=== PATIENT | female | born 1945 | race Caucasian/White ===

== ENCOUNTER → 2017-03-23 | Outpatient (CLI) | payer OTHER, MEDICARE ==
--- NOTE | 2017-03-23 14:16 | RADIOLOGY REPORT (SQ) ---
EXAM DESCRIPTION: MRI LUMBAR SPINE WITHOUT COMPLETED DATE/TIME: 03/23/2017 1:44 pm REASON FOR STUDY: M48.56XA COLLAPSED VERTEBRA, NEC, LUMBAR REGION, INIT M48.56XA COLLAPSED VERTEBRA , NEC, LUMBAR REGION, INIT COMPARISON: No recent comparisons. TECHNIQUE: Sagittal and Axial imaging includes T1, T2, STIR and gradient echo sequences. Coronal T2/ HASTE imaging. LIMITATIONS: None. FINDINGS: VISUALIZED UPPER ABDOMEN: Limited evaluation. No acute or suspicious findings suggested. SEGMENTATION: No transitional anatomy. The lowest well-developed disc space is labeled L5-S1. ALIGNMENT: Mild grade 1 listhesis at L4-5. VERTEBRAE: Multilevel compression fractures. At L3-4, upper endplate depression with associated stef a, mild height loss without retropulsion. This suggests recent upper endplate fracture. At L5-S1, c onsiderable wedging with greater than 50% height loss maximally. Associated inferior endplate fractu re line and edema. No significant retropulsion. L2 and L4 upper endplate depressions are not associ ated with edema and presumably chronic. L1 is maintained. BONE MARROW: As above. Marrow signal otherwise normal. DISC SIGNAL: Diminished signal throughout. Individual disc levels are detailed below. POSTERIOR ELEMENTS: No pars defect. No exuberant facet overgrowth. HARDWARE: None in the spine. CORD AND CONUS: Normal in size and signal intensity. Conus at the appropriate level. SOFT TISSUES: No aortic aneurysm seen. No bulky retroperitoneal adenopathy or mass. No paraspinal mas s or fluid. L1-L2: Minimal disc bulge. No stenosis. L2-L3: No significant spinal stenosis or exit foraminal stenosis. L3-L4: Mild foraminal narrowing. L4-L5: Slight degenerative malalignment as above. Associated broad disc bulge. There is mild right lateral recess narrowing and overall noncritical central canal encroachment. Up to moderate right fo raminal stenosis. L5-S1: Mild broad posterior protrusion contacts the right S1 nerve root without displacement. No hig h-grade central stenosis. Relatively patent neural foramina with mild narrowing on the right. LOWER THORACIC: Incompletely imaged. No stenosis seen. SACRUM: Visualized upper sacrum intact. OTHER: No other significant findings. IMPRESSION: 1. Recent appearing compression fractures without retropulsion at the L3 and L5 levels. 2. Chronic L2 and L4 vertebral compression fractures. 3. Mild degenerative listhesis at L4-5 with noncritical central spinal stenosis. Other degenerative changes as above. TECHNICAL DOCUMENTATION: JOB ID: [id number] [employer]- All Rights Reserved
== END ==
LOC: RAD 15:40
PROVIDERS: ATTEND Family Medicine
DX: M48.56XA Collapsed vertebra, not elsewhere classified, lumbar region, initial encounter for fracture (principal)
CPT/HCPCS: 72148

== ENCOUNTER → 2018-10-14 | Outpatient (CLI) | payer OTHER, MEDICARE ==
--- NOTE | 2018-10-14 15:54 | RADIOLOGY REPORT (SQ) ---
EXAM DESCRIPTION: CT HEAD WITHOUT COMPLETED DATE/TIME: 10/14/2018 3:43 pm REASON FOR STUDY: R40.20 UNSPECIFIED COMA R41.3 OTHER AMNESIA R40.20 UNSPECIFIED COMA R41.3 OTHER AMNESIA COMPARISON: 05/16/2014. TECHNIQUE: Axial images acquired through the brain without intravenous contrast. Images reviewed wi th bone, brain and subdural windows. Additional sagittal and coronal reconstructions were generated. Images stored on PACS. All CT scanners at this facility use dose modulation, iterative reconstruction, and/or weight based d osing when appropriate to reduce radiation dose to as low as reasonably achievable (ALARA). [facility]: Dose Right [facility]: CareDose [facility]: Dose Right [facility]: Teradose 4D [facility]: MyDocTime RADIATION DOSE: CT Rad equipment meets quality standard of care and radiation dose reduction techniq ues were employed. CTDIvol: 48.6 mGy. DLP: 905 mGy-cm. mGy. LIMITATIONS: None. FINDINGS: VENTRICLES: Normal size and contour. CEREBRUM: No masses. No hemorrhage. No midline shift. No evidence for acute infarction. Normal gra y/white matter differentiation. No areas of low density in the white matter. CEREBELLUM: No masses. No hemorrhage. No alteration of density. No evidence for acute infarction. EXTRAAXIAL SPACES: No fluid collections. No masses. ORBITS AND GLOBE: No intra- or extraconal masses. Normal contour of globe without masses. CALVARIUM: No fracture. PARANASAL SINUSES: No fluid or mucosal thickening. SOFT TISSUES: No mass or hematoma. OTHER: No other significant finding. IMPRESSION: NORMAL BRAIN CT WITHOUT CONTRAST. EVIDENCE OF ACUTE STROKE: NO. COMMENT: Quality ID # [id number]: Final reports with documentation of one or more dose reduction techniques (e.g., Automated exposure control, adjustment of the mA and/or kV according to patient size, use of iterative reconstruction technique) TECHNICAL DOCUMENTATION: JOB ID: [id number] [employer]- All Rights Reserved Reading location - IP/workstation name: [email or web address]
== END ==
LOC: RAD 12:44
PROVIDERS: ATTEND Family Medicine
DX: R41.3 Other amnesia (principal); R40.20 Unspecified coma
CPT/HCPCS: 70450

== ENCOUNTER 2019-12-01 14:00 | Emergency (ER) | payer MEDICARE, OTHER ==
--- NOTE | 2019-12-01 14:26 | ER Document Report ---
ED Medical Screen (RME) - General Chief Complaint: Asthma Exacerbation Stated Complaint: COUGH,SHORT OF BREATH Time Seen by Provider: 12/01/19 14:20 Primary Care Provider: SHREYA BURCH MD [Primary Care Provider] - Follow up as needed Mode of Arrival: Wheelchair Information source: Patient Notes: Patient presents complaining of chronic cough for the past year and a half that worsened over the past month. Patient was seen earlier today by her primary doctor and had outpatient COVID testing, basic labs and chest x-ray. Patient had multifocal pneumonia on her x-ray and was advised to come in. Patient reports intolerance of many antibiotics and steroids. Patient has a history of asthma, anxiety, COPD and Gaston's disease. I have greeted and performed a rapid initial assessment of this patient. A comprehensive ED assessment and evaluation of the patient, analysis of test results and completion of the medical decision making process will be conducted by additional ED providers. TRAVEL OUTSIDE OF THE [place] IN LAST 30 DAYS: No - Related Data Allergies/Adverse Reactions: cyclosporine [From Restasis] Allergy (Severe, Verified 07/25/13 17:47) RASH grape [Grape] Allergy (Severe, Verified 07/25/13 17:47) BREATHING DIFFICULTY Iodinated Contrast Media [IV Dye, Iodine Containing] Allergy (Severe, Verified 07/25/13 17:47) Hives nitrofurantoin macrocrystalline [From Macrobid] Allergy (Severe, Verified 07/25/13 17:47) N AND V Penicillins Allergy (Severe, Verified 07/25/13 17:47) Hives pineapple [Pineapple] Allergy (Severe, Verified 07/25/13 17:47) Swelling of Throat Shellfish * [Shellfish] Allergy (Severe, Verified 07/25/13 17:47) Swelling of Throat Sulfa (Sulfonamide Antibiotics) Allergy (Severe, Verified 07/25/13 17:47) RASH trimethoprim [From Bactrim] Allergy (Severe, Verified 07/25/13 17:47) N AND V ibuprofen Adverse Reaction (Verified 07/25/13 17:47) steroids Allergy (Severe, Uncoded 07/25/13 17:47) Seizures Past Medical History - Past Medical History Cardiac Medical History: Reports: Hx Congestive Heart Failure - summer, Hx Hypertension Denies: Hx Atrial Fibrillation, Hx Coronary Artery Disease, Hx Heart Attack, Hx Hypercholesterolemia, Hx Peripheral Vascular Disease, Hx Pulmonary Embolism, Hx Heart Murmur Pulmonary Medical History: Reports: Hx Asthma - No meds (seldom has any problems now), Hx Bronchitis - Last time approx 2 yrs ago, Hx Pneumonia - x2 (20 yrs ago) Denies: Hx COPD, Hx Respiratory Failure, Hx Sleep Apnea, Hx Tuberculosis Neurological Medical History: Reports: Hx Seizures - with steroid use . Denies: Hx Cerebrovascular Accident - Denies, but stuttered for 12 yrs, normal speech last 5 yrs unless tired., Hx Parkinson's Disease Endocrine Medical History: Reports: Hx Hypothyroidism - meds x 30 years. Denies: Hx Graves' Disease, Hx Hyperthyroidism Renal/ Medical History: Reports: Hx Kidney Stones - "long time ago" no surgical intervention, Hx Ovarian Cysts. Denies: Hx End Stage Renal Disease, Hx Peritoneal Dialysis, Hx Pelvic Inflammatory Disease Malignancy Medical History: Denies: Hx Breast Cancer, Hx Cervical Cancer, Hx Lung Cancer, Hx Ovarian Cancer GI Medical History: Reports: Hx Gastroesophageal Reflux Disease, Hx Ulcer. Denies: Hx Crohn's Disease, Hx Hiatal Hernia, Hx Irritable Bowel, Hx Liver Failure, Hx Pancreatitis Musculoskeltal Medical History: Reports Hx Arthritis, Reports Hx Fibromyalgia - Dx'ed 2005, Denies Hx Multiple Sclerosis, Denies Hx Muscular Dystrophy, Denies Hx Systemic Lupus Erythematosus Psychiatric Medical History: Reports: Hx Depression Denies: Hx Bipolar Disorder, Hx Dementia, Hx Post Traumatic Stress Disorder, Hx Schizophrenia Traumatic Medical History: Reports: Hx Fractures - LEFT hand, no surgical intervention Past Surgical History: Reports: Hx Cholecystectomy - laparoscopic approx 7 years ago, Hx Orthopedic Surgery - right hip, Hx Tonsillectomy. Denies: Hx Appendectomy, Hx Bowel Surgery, Hx Section, Hx Colostomy, Hx Coronary Artery Bypass Graft, Hx Gastric Bypass Surgery, Hx Herniorrhaphy, Hx Hysterectomy, Hx Mastectomy, Hx Pacemaker, Hx Tubal Ligation - Immunizations Hx Diphtheria, Pertussis, Tetanus Vaccination: Yes Physical Exam - Vital signs Vitals: Temp Pulse Resp BP Pulse Ox 98.2 F 89 16 125/71 100 12/01/19 14:16 12/01/19 14:16 12/01/19 14:16 12/01/19 14:16 12/01/19 14:16 - Respiratory Respiratory status: No respiratory distress. No: Tachypnea Breath sounds: Nonproductive cough, Rales - Bilateral lower lobes Course - Vital Signs Vital signs: Temp Pulse Resp BP Pulse Ox 98.2 F 89 16 125/71 100 12/01/19 14:16 12/01/19 14:16 12/01/19 14:16 12/01/19 14:16 12/01/19 14:16 Doctor's Discharge - Discharge Referrals: SHREYA BURCH MD [Primary Care Provider] - Follow up as needed
[2019-12-01 18:23] LABS: A TYPE INFLUENZA AG NEGATIVE (NEGATIVE); B INFLUENZA AG NEGATIVE (NEGATIVE)
[2019-12-01 19:00] LABS: ALBUMIN 4.3 g/dL (3.5-5.0); BILIRUBIN,DIRECT 0.3 mg/dL (0.0-0.4); BILIRUBIN,TOTAL 0.5 mg/dL (0.2-1.3); NEONATAL BILIRUBIN RESULT 0.2 mg/dL (0.1-1.1); TOTAL PROTEIN 7.6 g/dL (6.3-8.2)
--- NOTE | 2019-12-01 19:17 | ER Document Report ---
ED General - General Chief Complaint: Asthma Exacerbation Stated Complaint: COUGH,SHORT OF BREATH Time Seen by Provider: 12/01/19 14:20 Primary Care Provider: SHREYA BURCH MD [Primary Care Provider] - Follow up as needed Mode of Arrival: Wheelchair Information source: Patient Notes: Patient is a 74-year-old female presenting to the emergency department chief complaint of shortness of breath and asthma exacerbation. Patient states that she was seen by her primary care physician and subsequently by a labourers and then informed to come to the emergency department for further evaluation and possible management. At time of presentation patient states that she is very short of breath but is carrying on a full conversation maintaining a 95% oxygen saturation and appears anxious but not in any acute distress. Patient states is been ongoing for some time but worse the past couple of days. Patient denies nausea vomiting diarrhea. Patient does report a cough but no fever or chills. TRAVEL OUTSIDE OF THE [place] IN LAST 30 DAYS: No - HPI Onset: Last week Onset/Duration: Persistent, Worse Quality of pain: No pain Severity: None Pain Level: Denies Associated symptoms: Nonproductive cough, Productive cough, Shortness of breath Exacerbated by: Movement, Walking, Coughing, Deep breathing Relieved by: Denies Similar symptoms previously: Yes Recently seen / treated by doctor: Yes - Related Data Allergies/Adverse Reactions: cyclosporine [From Restasis] Allergy (Severe, Verified 12/01/19 19:15) RASH grape [Grape] Allergy (Severe, Verified 12/01/19 19:15) BREATHING DIFFICULTY Iodinated Contrast Media [IV Dye, Iodine Containing] Allergy (Severe, Verified 12/01/19 19:15) Hives nitrofurantoin macrocrystalline [From Macrobid] Allergy (Severe, Verified 12/01/19 19:15) N AND V Penicillins Allergy (Severe, Verified 12/01/19 19:15) Hives pineapple [Pineapple] Allergy (Severe, Verified 12/01/19 19:15) Swelling of Throat Shellfish * [Shellfish] Allergy (Severe, Verified 12/01/19 19:15) Swelling of Throat Sulfa (Sulfonamide Antibiotics) Allergy (Severe, Verified 12/01/19 19:15) RASH trimethoprim [From Bactrim] Allergy (Severe, Verified 12/01/19 19:15) N AND V ibuprofen Adverse Reaction (Verified 12/01/19 19:15) steroids Allergy (Severe, Uncoded 12/01/19 19:15) Seizures Past Medical History - General Information source: Patient - Social History Smoking Status: Never Smoker Chew tobacco use (# tins/day): No Frequency of alcohol use: None Drug Abuse: None Lives with: Spouse/Significant other Family History: Reviewed & Not Pertinent Patient has suicidal ideation: No Patient has homicidal ideation: No - Past Medical History Cardiac Medical History: Reports: Hx Congestive Heart Failure - summer, Hx Hypertension Denies: Hx Atrial Fibrillation, Hx Coronary Artery Disease, Hx Heart Attack, Hx Hypercholesterolemia, Hx Peripheral Vascular Disease, Hx Pulmonary Embolism, Hx Heart Murmur Pulmonary Medical History: Reports: Hx Asthma - No meds (seldom has any problems now), Hx Bronchitis - Last time approx 2 yrs ago, Hx Pneumonia - x2 (20 yrs ago) Denies: Hx COPD, Hx Respiratory Failure, Hx Sleep Apnea, Hx Tuberculosis Neurological Medical History: Reports: Hx Seizures - with steroid use . Denies: Hx Cerebrovascular Accident - Denies, but stuttered for 12 yrs, normal speech last 5 yrs unless tired., Hx Parkinson's Disease Endocrine Medical History: Reports: Hx Hypothyroidism - meds x 30 years. Denies: Hx Graves' Disease, Hx Hyperthyroidism Renal/ Medical History: Reports: Hx Kidney Stones - "long time ago" no surgical intervention, Hx Ovarian Cysts. Denies: Hx End Stage Renal Disease, Hx Peritoneal Dialysis, Hx Pelvic Inflammatory Disease Malignancy Medical History: Denies: Hx Breast Cancer, Hx Cervical Cancer, Hx Lung Cancer, Hx Ovarian Cancer GI Medical History: Reports: Hx Gastroesophageal Reflux Disease, Hx Ulcer. Denies: Hx Crohn's Disease, Hx Hiatal Hernia, Hx Irritable Bowel, Hx Liver Failure, Hx Pancreatitis Musculoskeletal Medical History: Reports Hx Arthritis, Reports Hx Fibromyalgia - Dx'ed 2005, Denies Hx Multiple Sclerosis, Denies Hx Muscular Dystrophy, Denies Hx Systemic Lupus Erythematosus Psychiatric Medical History: Reports: Hx Depression Denies: Hx Bipolar Disorder, Hx Dementia, Hx Post Traumatic Stress Disorder, Hx Schizophrenia Traumatic Medical History: Reports: Hx Fractures - LEFT hand, no surgical intervention Past Surgical History: Reports: Hx Cholecystectomy - laparoscopic approx 7 years ago, Hx Orthopedic Surgery - right hip, Hx Tonsillectomy. Denies: Hx Appendectomy, Hx Bowel Surgery, Hx Section, Hx Colostomy, Hx Coronary Artery Bypass Graft, Hx Gastric Bypass Surgery, Hx Herniorrhaphy, Hx Hysterectomy, Hx Mastectomy, Hx Pacemaker, Hx Tubal Ligation - Immunizations Hx Diphtheria, Pertussis, Tetanus Vaccination: Yes Review of Systems - Review of Systems Notes: REVIEW OF SYSTEMS: CONSTITUTIONAL : Denies fever, chills, or sweats. Denies recent illness. EENT: Denies eye, ear, throat, or mouth pain or symptoms. Denies nasal or sinus congestion. CARDIOVASCULAR: Denies chest pain. RESPIRATORY: Per HPI GASTROINTESTINAL: Denies abdominal pain. Denies nausea, vomiting, or diarrhea. Denies constipation. GENITOURINARY: Denies difficulty urinating, painful urination, burning, frequency, or blood in urine. MUSCULOSKELETAL: Denies neck or back pain or joint pain or swelling. SKIN: Denies rash or skin lesions. HEMATOLOGIC : Denies easy bruising or bleeding. NEUROLOGICAL: Denies altered mental status or loss of consciousness. Denies headache. Denies weakness or paralysis or loss of use of either side. Denies problems with gait or speech. Denies sensory or motor loss. PSYCHIATRIC: Denies suicidal or homicidal ideations 10 Systems are negative unless otherwise specified above Physical Exam - Vital signs Vitals: Temp Pulse Resp BP Pulse Ox 98.2 F 89 16 125/71 100 12/01/19 14:16 12/01/19 14:16 12/01/19 14:16 12/01/19 14:16 12/01/19 14:16 - Notes Notes: PHYSICAL EXAMINATION: GENERAL: Well-appearing, well-nourished and in no acute distress. HEAD: Atraumatic, normocephalic. EYES: Pupils equal round and reactive to light, extraocular movements intact, sclera anicteric, conjunctiva are normal. ENT: nares patent, oropharynx clear without exudates. Moist mucous membranes. NECK: Normal range of motion, supple without lymphadenopathy, no appreciable JVD LUNGS: Lungs demonstrate crackles to the bases but deep inspiration does elicit a cough response. HEART: Regular rate and rhythm without murmurs ABDOMEN: Soft, nontender, normal bowel sounds. No guarding, no rebound. No masses appreciated. EXTREMITIES: Active full range of motion, no pitting or edema. No cyanosis. 2+ pulses x4 NEUROLOGICAL: No focal neurological deficits. Moves all extremities spontaneously and on command. Patient does appear quite anxious. SKIN: Warm, Dry, and intact. Normal turgor, no rashes or lesions noted. Course - Re-evaluation Re-evalutation: 12/01/19 21:16 Patient has been maintained on a residence hall director the entire time in the emergency department after reviewing EKG labs and chest x-ray I discussed with the patient and eventually agreed on an albuterol breathing treatment and guaifenesin. After this was given the patient states that she felt markedly improved. She is still requesting at home oxygen but at this time I do not see a need to initiated at this time and recommend that she speak with her primary care provider in regards to a possible at home oxygen generator. There is no signs of heart attack or obvious pneumonia. Patient has been tested for coronavirus which is pending influenza was obtained and determined to be negative. Patient will be discharged home and follow-up with her primary care provider. - Vital Signs Vital signs: Temp Pulse Resp BP Pulse Ox 98.0 F 84 20 119/71 95 12/01/19 20:56 12/01/19 19:42 12/01/19 20:55 12/01/19 20:56 12/01/19 20:55 Discharge - Discharge Clinical Impression: Anxiety, Shortness of breath Asthma exacerbation Qualifiers: Asthma severity: moderate Asthma persistence: unspecified Qualified Code(s): J45.901 - Unspecified asthma with (acute) exacerbation Condition: Stable Disposition: HOME, SELF-CARE Instructions: Asthma ([facility]), Inhaled Bronchodilators ([facility]) Additional Instructions: Recommend following up with your primary care physician on Wednesday to discuss whether or not they feel the need to start you on supplemental oxygen at home. Please take medications as prescribed. Prescriptions: Guaifenesin [Adult Tussin Chest Congestion] 100 mg PO Q4 #120 liquid Referrals: SHREYA BURCH MD [Primary Care Provider] - Follow up as needed
[2019-12-01] MEDS ORDERED: GUAIFENESIN SYRP 200 MG/10 ML UDC PO ONE (19:27)
[2019-12-01] MEDS ORDERED: ALBUTEROL SULFATE 0.083% NEB 2.5 MG/3 ML AMPUL NEB ONE (19:27)
[2019-12-01 21:06] VITALS: BP 119/71
--- NOTE | 2019-12-01 23:52 | RADIOLOGY REPORT (SQ) ---
EXAM DESCRIPTION: XR CHEST 1 VIEW COMPLETED DATE/TME: 12/01/2019 19:27 CLINICAL HISTORY: 74 years, Female, worsening sob EXAM DESCRIPTION: CLINICAL HISTORY: worsening sob COMPARISON: 05/16/2014 FINDINGS: Single view of the chest is submitted. There is bilateral pulmonary edema and mild cardiomegaly. Edema has worsened since the prior exam but the lung volumes are smaller which exaggerates this appearance. There is mild consolidation at the lateral left lung. No other definite focal consolidation. IMPRESSION: Worsened pulmonary edema. Mild consolidation at the left lateral lung.
== END 2019-12-01 21:32 | disposition home or self-care (01) ==
LOC: ER 14:00
DX: J45.901 Unspecified asthma with (acute) exacerbation (principal); F41.9 Anxiety disorder, unspecified
CPT/HCPCS: 94640; 99284; 36415; 87040; 85025; 80076; 80048; 87804; 71046; 71045; 99201; U0003; A9270 ×2; G0463; C9803; 87635; 99211; J7613

== ENCOUNTER → 2019-12-01 | Outpatient (CLI) | payer MEDICARE, OTHER ==
[2019-12-01 10:30] LABS: ABSOLUTE BASOPHILS # (AUTO) 0.1 10^3/uL (0.0-0.2); ABSOLUTE EOSINOPHILS # (AUTO) 0.5 10^3/uL (0.0-0.6); ABSOLUTE LYMPHOCYTES (AUTO) 2.5 10^3/uL (0.5-4.7); ABSOLUTE MONOCYTES (AUTO) 1.1 10^3/uL (0.1-1.4); BASOPHILS % (AUTO) 0.9 % (0-2); EOSINOPHILS % (AUTO) 3.9 % (0-6); HEMATOCRIT 41.7 % (36.0-47.0); LYMPHOCYTES % (AUTO) 20.6 % (13-45); MEAN CORPUSCULAR HEMOGLOBIN 30.4 pg (27.0-33.4); MEAN CORPUSCULAR HGB CONC 33.4 g/dL (32.0-36.0); MEAN CORPUSCULAR VOLUME 91 fl (80-97); MONOCYTES % (AUTO) 8.8 % (3-13); PLATELET COUNT 327 10^3/uL (150-450); RED BLOOD COUNT 4.59 10^6/uL (3.72-5.28); RED CELL DISTRIBUTION WIDTH 18.2 % (11.5-14.0); SEGMENTED NEUTROPHILS % (AUTO) 65.8 % (42-78); TOTAL CELLS COUNTED % (AUTO) 100 %; WHITE BLOOD COUNT 12.2 10^3/uL (4.0-10.5)
--- NOTE | 2019-12-01 10:35 | RADIOLOGY REPORT (SQ) ---
EXAM DESCRIPTION: CHEST 2 VIEWS IMAGES COMPLETED DATE/TIME: 12/01/2019 10:18 am REASON FOR STUDY: R06.00 DYSPNEA, UNSPECIFIED COMPARISON: 05/16/14 EXAM PARAMETERS: NUMBER OF VIEWS: two views TECHNIQUE: Digital Frontal and Lateral radiographic views of the chest acquired. RADIATION DOSE: NA LIMITATIONS: none FINDINGS: LUNGS AND PLEURA: Low lung volumes. Patchy bilateral airspace disease greatest within the left mid lung perihilar region. No significant effusion. No pneumothorax. MEDIASTINUM AND HILAR STRUCTURES: No masses or contour abnormalities. HEART AND VASCULAR STRUCTURES: Normal heart size. Vascular calcifications. BONES: No acute findings. HARDWARE: None in the chest. OTHER: No other significant finding. IMPRESSION: Low lung volumes with patchy bilateral airspace disease, left greater than right. Findi ngs suspicious for multifocal pneumonia, of which viral pneumonia is a consideration. TECHNICAL DOCUMENTATION: JOB ID: [id number] 2010 [email or web address]- All Rights Reserved Reading location - IP/workstation name: [email or web address]
[2019-12-01 11:32] LABS: ANION GAP 13 (5-19); BLOOD UREA NITROGEN 10 mg/dL (7-20); CALCIUM 9.5 mg/dL (8.4-10.2); CARBON DIOXIDE 22 mmol/L (22-30); CHLORIDE 104 mmol/L (98-107); GLUCOSE 115 mg/dL (75-110); POTASSIUM 4.8 mmol/L (3.6-5.0)
== END ==
LOC: RAD 09:57
PROVIDERS: ATTEND Internal Medicine Pulmonary Disease
DX: R06.00 Dyspnea, unspecified (principal)
CPT/HCPCS: 36415; 71046; 80048; 85025

== ENCOUNTER → 2019-12-01 | Outpatient (CLI) | payer MEDICARE, OTHER ==
[2019-12-01 13:22] VITALS: BP 120/54
--- NOTE | 2019-12-01 13:22 | ER RDC ASSESSMENT REPORT ---
Intake - In the Last 14 days Have you traveled outside [place]?: No Have you been in close contact with someone CONFIRMED: No Worked in Healthcare?: No - Symptoms Subjective Fever(Connelly feverish): No Chills: Yes Muscule Aches: No Runny Nose: No Sore Throat: No Cough (New or worsening chronic cough): Yes Shortness of breath: Yes Nausea or Vomiting: No Headache: No Abdominal Pain: No Diarrhea(3 or more loose stools in last 24 hours): No - Do you have any of the following Chronic lung disease: Asthma or emphysema or COPD: Yes Cystic Fibrosis: No Diabetes: No High Blood Pressure: Yes Cardiovascular Disease: Yes Chronic Kidney Disease: No Chronic Liver Disease: No Chronic blood disorder like Sickle Cell Disease: No Weak immune system due to disease or medication: Yes Neurologic condition that limits movement: No Developmental delay - Moderate to Severe: No Recent (within past 2 weeks) or current : No Morbid Obesity (>100 pounds over ideal weight): No - Objective Temperature: 97.5 F Pulse Rate: 82 Respiratory Rate: 18 Blood Pressure: 120/54 O2 Sat by Pulse Oximetry: 92 - per pt, normal due to underlying COPD/asthma Objective: Given above, testing performed: covid Disposition: Home; Selfcare General - General Stated Complaint: cough Mode of Arrival: Ambulatory Information source: Patient - HPI Notes: 74-year-old female presents to [facility] for COVID-19 testing. Patient reports no known exposure to COVID positive individual. Patient is unable to identify onset of symptoms. She states she has been sick off and on since Jun, 2018. She states she is currently being treated for a pneumonia that was identified on her chest x-ray. She is complaining of chills, cough, mild shortness of breath. However she states the cough and shortness of breath are similar to her baseline with the underlying asthma/COPD. She denies any fever, myalgia, runny nose, sore throat, nausea, vomiting, headache, abdominal pain or diarrhea. - Related Data Allergies/Adverse Reactions: cyclosporine [From Restasis] Allergy (Severe, Verified 07/25/13 17:47) RASH grape [Grape] Allergy (Severe, Verified 07/25/13 17:47) BREATHING DIFFICULTY Iodinated Contrast Media [IV Dye, Iodine Containing] Allergy (Severe, Verified 07/25/13 17:47) Hives nitrofurantoin macrocrystalline [From Macrobid] Allergy (Severe, Verified 07/25/13 17:47) N AND V Penicillins Allergy (Severe, Verified 07/25/13 17:47) Hives pineapple [Pineapple] Allergy (Severe, Verified 07/25/13 17:47) Swelling of Throat Shellfish * [Shellfish] Allergy (Severe, Verified 07/25/13 17:47) Swelling of Throat Sulfa (Sulfonamide Antibiotics) Allergy (Severe, Verified 07/25/13 17:47) RASH trimethoprim [From Bactrim] Allergy (Severe, Verified 07/25/13 17:47) N AND V ibuprofen Adverse Reaction (Verified 07/25/13 17:47) steroids Allergy (Severe, Uncoded 07/25/13 17:47) Seizures Past Medical History - General Information source: Patient - Social History Smoking Status: Never Smoker Family History: Reviewed & Not Pertinent - Past Medical History Cardiac Medical History: Reports: Hx Congestive Heart Failure - summer, Hx Hypertension Denies: Hx Atrial Fibrillation, Hx Coronary Artery Disease, Hx Heart Attack, Hx Hypercholesterolemia, Hx Peripheral Vascular Disease, Hx Pulmonary Embolism, Hx Heart Murmur Pulmonary Medical History: Reports: Hx Asthma - No meds (seldom has any problems now), Hx Bronchitis - Last time approx 2 yrs ago, Hx Pneumonia - x2 (20 yrs ago) Denies: Hx COPD, Hx Respiratory Failure, Hx Sleep Apnea, Hx Tuberculosis EENT Medical History: Reports: None Neurological Medical History: Reports: Hx Seizures - with steroid use . Denies: Hx Cerebrovascular Accident - Denies, but stuttered for 12 yrs, normal speech last 5 yrs unless tired., Hx Parkinson's Disease Endocrine Medical History: Reports: Hx Hypothyroidism - meds x 30 years. Denies: Hx Graves' Disease, Hx Hyperthyroidism Other: Tavares's Renal/ Medical History: Reports: Hx Kidney Stones - "long time ago" no surgical intervention, Hx Ovarian Cysts. Denies: Hx End Stage Renal Disease, Hx Peritoneal Dialysis, Hx Pelvic Inflammatory Disease Malignancy Medical History: Reports: None. Denies: Hx Breast Cancer, Hx Cervical Cancer, Hx Lung Cancer, Hx Ovarian Cancer GI Medical History: Reports: None, Hx Gastroesophageal Reflux Disease, Hx Ulcer. Denies: Hx Crohn's Disease, Hx Hiatal Hernia, Hx Irritable Bowel, Hx Liver Failure, Hx Pancreatitis Musculoskeletal Medical History: Reports Hx Arthritis, Reports Hx Fibromyalgia - Dx'ed 2006, Denies Hx Multiple Sclerosis, Denies Hx Muscular Dystrophy, Denies Hx Systemic Lupus Erythematosus Skin Medical History: Reports None Psychiatric Medical History: Reports: Hx Depression Denies: Hx Bipolar Disorder, Hx Dementia, Hx Post Traumatic Stress Disorder, Hx Schizophrenia Traumatic Medical History: Reports: Hx Fractures - LEFT hand, no surgical intervention Infectious Medical History: Reports: None Past Surgical History: Reports: Hx Cholecystectomy - laparoscopic approx 7 years ago, Hx Orthopedic Surgery - right hip, Hx Tonsillectomy. Denies: Hx Appendectomy, Hx Bowel Surgery, Hx Section, Hx Colostomy, Hx Coronary Artery Bypass Graft, Hx Gastric Bypass Surgery, Hx Herniorrhaphy, Hx Hysterectomy, Hx Mastectomy, Hx Pacemaker, Hx Tubal Ligation Physical Exam - General General appearance: Appears well, Alert In distress: None Notes: PHYSICAL EXAMINATION: GENERAL: Well-appearing and in no acute distress. HEAD: Atraumatic, normocephalic. EYES: sclera anicteric, conjunctiva are normal. ENT: nares patent. Moist mucous membranes. NECK: Normal range of motion, supple without lymphadenopathy. LUNGS: No increased work of breathing. Lung sounds CTAB and equal, diminished medial and bilateral bases. No wheezes rales or rhonchi. Dry cough. HEART: Regular rate and rhythm without murmurs. ABDOMEN: Soft, nontender, normal bowel sounds, no guarding. EXTREMITIES: Normal range of motion, no pitting edema. No cyanosis. NEUROLOGICAL: A&O x 3. Normal speech. PSYCH: Normal mood, normal affect. SKIN: Warm, Dry, normal turgor, no rashes or lesions noted Patient Education/Counseling Counseling/Education: Patient presents with symptoms associated with possible Covid 19 infection. Patient does not have emergency worrying symptoms such as difficulty breathing, shortness of breath, chest pain, pressure, confusion or cyanosis. Patient appears suitable for discharge as vital signs are stable and patient is nontoxic in appearance. Good return precautions have been discussed with patient, patient verbalized understanding and is agreeable with discharge plan of care at this time. Guidance for worsening S/SX: As a person under investigation for Covid 19, the [facility], division of public health advises you to adhere to the following guidance until your test results are reported to you. If your test result is positive, you will receive additional information from your provider and your local health department at that time. Remain at home until you are cleared by the health provider or public health authorities. Keep a log of visitors to your home, notify any visitors to your home of your isolation status. If you plan to move to a new address or leave the county, notify the local health department in your County. Call your doctor or seek care if you have an urgent medical need. Before seeking medical care, call ahead to get instructions from the provider before arriving at the medical office clinic or hospital. Notify them that you are being tested for the virus that causes Covid 19 so that arrangements can be made, as necessary, to prevent transmission to others in the healthcare setting. Next, notify the local health department in your county. If a medical emergency arises and you need to call 911, inform the first responders that you are being tested for the virus that causes Covid 19. Next, notify the local health department in your county. RDC Discharge - Discharge Clinical Impression: Encounter for screening laboratory testing for COVID-19 virus Condition: Stable Disposition: Home; Selfcare
== END ==
LOC: RDC 11:17
PROVIDERS: ATTEND Registered Nurse
DX: Z20.828 Contact with and (suspected) exposure to other viral communicable diseases (principal); R68.83 Chills (without fever); R06.02 Shortness of breath; R05 Cough; I10 Essential (primary) hypertension; J44.9 Chronic obstructive pulmonary disease, unspecified; R56.9 Unspecified convulsions; E03.9 Hypothyroidism, unspecified; Z87.01 Personal history of pneumonia (recurrent); Z88.0 Allergy status to penicillin; Z88.1 Allergy status to other antibiotic agents; Z91.013 Allergy to seafood; Z91.041 Radiographic dye allergy status; Z91.018 Allergy to other foods; Z79.52 Long term (current) use of systemic steroids; Z79.899 Other long term (current) drug therapy
CPT/HCPCS: U0003; C9803; 87635; 99201; 99211

== ENCOUNTER → 2019-12-12 | Outpatient (CLI) | payer MEDICARE, OTHER ==
--- NOTE | 2019-12-12 09:54 | RADIOLOGY REPORT (SQ) ---
EXAM DESCRIPTION: CT CHEST WITHOUT IMAGES COMPLETED DATE/TIME: 12/12/2019 8:05 am REASON FOR STUDY: J84.10 PULMONARY FIBROSIS, UNSPECIFIED J84.10 PULMONARY FIBROSIS, UNSPECIFIED COMPARISON: 2016 CT chest report from [facility]. TECHNIQUE: supine high resolution technique imaging performed through the lungs windowed for lung wi ndows. Limited evaluation of the mediastinum. All CT scanners at this facility use dose modulation, iterative reconstruction, and/or weight based d osing when appropriate to reduce radiation dose to as low as reasonably achievable (ALARA). [facility]: Dose Right [facility]: CareDose [facility]: Dose Right [facility]: Teradose 4D [facility]: [employer] RADIATION DOSE: CT Rad equipment meets quality standard of care and radiation dose reduction techniq ues were employed. CTDIvol: 2.2 mGy. DLP: 53 mGy-cm. mGy. LIMITATIONS: None. FINDINGS: LUNGS AND PLEURA: Upper and lower lobe interstitial changes. Reticular opacities with sub pleural mild honeycombing/fibrosis. No ground-glass infiltrates. No consolidation. No pleural calc ification. LIMITED MEDIASTINUM: No masses. BONES: Osteopenic. OTHER: No other significant finding. IMPRESSION: Pulmonary fibrosis. Upper and lower lobe interstitial disease as above. Previous repor t suggests only mild interstitial changes, possible progression since 2016. TECHNICAL DOCUMENTATION: JOB ID: [id number] Quality ID # [id number]: Final reports with documentation of one or more dose reduction techniques (e.g., Au tomated exposure control, adjustment of the mA and/or kV according to patient size, use of iterative reconstruction technique) 2010 [employer]- All Rights Reserved Reading location - IP/workstation name: [email or web address]
== END ==
LOC: RAD 07:47
PROVIDERS: ATTEND Internal Medicine Pulmonary Disease
DX: J84.10 Pulmonary fibrosis, unspecified (principal)
CPT/HCPCS: 71250

== ENCOUNTER → 2019-12-12 | Outpatient (CLI) | payer MEDICARE, OTHER ==
[2019-12-12 09:34] LABS: ARTERIAL BLOOD BASE EXCESS -2.1 mmol/L; ARTERIAL BLOOD FIO2 ROOM AIR; ARTERIAL BLOOD H2CO3 1.01 mmol/L (1.05-1.35); ARTERIAL BLOOD HCO3 21.6 mmol/L (20-24); ARTERIAL BLOOD O2 SATURATION 94.4 % (94-98); ARTERIAL BLOOD PCO2 33.7 mmHg (35-45); ARTERIAL BLOOD PH 7.42 (7.35-7.45); ARTERIAL BLOOD PO2 69.1 mmHg (80-100); ARTERIAL BLOOD TOTAL CO2 22.6 mmol/L (21-25)
== END ==
LOC: OD 08:31
PROVIDERS: ATTEND Internal Medicine Pulmonary Disease
DX: R06.00 Dyspnea, unspecified (principal); J84.10 Pulmonary fibrosis, unspecified
CPT/HCPCS: 82803; 83880

== ENCOUNTER → 2020-02-14 | Outpatient (CLI) | payer MEDICARE, OTHER ==
--- NOTE | 2020-02-14 11:54 | RADIOLOGY REPORT (SQ) ---
EXAM DESCRIPTION: CHEST 2 VIEWS IMAGES COMPLETED DATE/TIME: 02/14/2020 8:30 am REASON FOR STUDY: RESTRICTIVE LUNG DISEASE COMPARISON: CT of the chest without contrast from 12/12/2019. EXAM PARAMETERS: NUMBER OF VIEWS: Two views. TECHNIQUE: PA and lateral views of the chest were obtained. RADIATION DOSE: NA LIMITATIONS: None. FINDINGS: LUNGS AND PLEURA: Unchanged diffuse bilateral interstitial opacities. The left lateral co stophrenic sulcus is blunted. There is no acute consolidation or pneumothorax. MEDIASTINUM AND HILAR STRUCTURES: No mediastinal or hilar contour abnormality. HEART AND VASCULAR STRUCTURES: The cardiac silhouette and pulmonary vasculature are within normal [place] its. BONES: No acute findings. HARDWARE: Cholecystectomy clips. OTHER: No other finding. IMPRESSION: Unchanged diffuse bilateral interstitial opacities without a superimposed acute cardiopu lmonary process. TECHNICAL DOCUMENTATION: JOB ID: [id number] 2010 [employer]- All Rights Reserved Reading location - IP/workstation name: [email or web address]
== END ==
LOC: RAD 08:10
PROVIDERS: ATTEND Internal Medicine Pulmonary Disease
DX: J98.4 Other disorders of lung (principal)
CPT/HCPCS: 71046